=== PATIENT | female | born 1995 ===

== ENCOUNTER 2016-08-05 18:50 | Emergency (ER) | payer BC ==
[2016-08-05 19:24] VITALS: BP 120/61
[2016-08-05] MEDS ORDERED: Lidocaine 1% MPF* 2 ML VIAL INJ ONE (20:51)
--- NOTE | 2016-08-05 21:06 | UC ---
Skin Complaint HPI - HPI Summary HPI Summary: 20 y/o female presents to the urgent care c/o of Rt big toe with pain swelling since 07/30/2016. Patient states her pain is 3/10 and his toe feels hot to touch and with puss. Patient denies fever, SOB, N/V/D. She hasn't apply or taking anything to alleviate her symptoms. - History of Current Complaint Chief Complaint: UCSkin Time Seen by Provider: 08/05/16 20:37 Stated Complaint: RED SWOLLEN TOE Hx Obtained From: Patient Hx Last Menstrual Period: 07/30/16 ?: No Onset/Duration: Gradual Onset, Lasting Days, Still Present Skin Exposure Onset/Duration: Days Ago Timing: Constant Onset Severity: Mild Current Severity: Moderate Pain Intensity: 3 Pain Scale Used: 0-10 Numeric Location: Foot (Right) - RT #1 toe swollen and with pus around the toenail Character: Swelling, Pain Aggravating: Touch, Other - wearing tight shoes. Alleviating: Cold Compresses Associated Signs & Symptoms: Positive: Tenderness. Negative: Fever, Drainage, Red Streaks - Allergy/Home Medications Allergies/Adverse Reactions: Allergies Allergy/AdvReac Type Severity Reaction Status Date / Time No Known Allergies Allergy Verified 08/05/16 20:26 Home Medications: Home Medications Norethindrone Acetate-Ethinyl [Lo Loestrin Fe 1 mg-10 Mcg / 10 Mcg] 1 tab PO 09/14 [History] Review of Systems Constitutional: Negative Skin: Other - Rt toe with swelling and pain Eyes: Negative ENT: Negative Respiratory: Negative Cardiovascular: Negative Gastrointestinal: Negative Genitourinary: Negative Motor: Negative Neurovascular: Negative Musculoskeletal: Negative Neurological: Negative Psychological: Negative All Other Systems Reviewed And Are Negative: Yes PMH/Surg Hx/FS Hx/Imm Hx Previously Healthy: Yes - Surgical History Surgical History: None - Family History Known Family History: Positive: Other - diverticulitis - Social History Occupation: Employed Full-time, Student Alcohol Use: Weekly Substance Use Type: None Smoking Status (MU): Never Smoked Tobacco Physical Exam Triage Information Reviewed: Yes Appearance: Well-Appearing, No Pain Distress, Well-Nourished, Thin Vital Signs: Initial Vital Signs Temp 99 F 08/05/16 19:23 Pulse 81 08/05/16 19:23 Resp 16 08/05/16 19:23 BP 120/61 08/05/16 19:23 Vital Signs Reviewed: Yes Eye Exam: Normal Eyes: Positive: Conjunctiva Clear ENT Exam: Normal ENT: Positive: Normal ENT inspection, Hearing grossly normal, Pharynx normal, TMs normal Neck exam: Normal Neck: Positive: Supple, Nontender, No Lymphadenopathy Respiratory Exam: Normal Respiratory: Positive: Chest non-tender, Lungs clear, Normal breath sounds Cardiovascular Exam: Normal Cardiovascular: Positive: RRR, No Murmur, Pulses Normal Abdominal Exam: Normal Abdomen Description: Positive: Nontender, No Organomegaly, Soft Musculoskeletal Exam: Normal Neurological Exam: Normal Psychological Exam: Normal Skin: Positive: Other - Rt # 1 toe with swelling, tenderness on palpation and purulent nail fold w/o drainage around the base and Rt lateral side of toe nail. Positive pulses, sensation and capillary refill of RT foot. Course/Dx - Course Course Of Treatment: RT #1 toe with paronychia: Hx obtained. PE abnormal findings:Rt # 1 toe with swelling, tenderness on palpation and purulent nail folds w/o drainage around the base and Rt lateral side of toe nail. Positive pulses, sensation and capillary refill. Time out performed and all involved parties agreed to the PT, procedure and laterality. The patient was prepped and draped in usual sterile fashion. Local anesthesia was obtained with 1 % Lidocaine w/o epinephrine.Sterile drape and prep were done. The fluctuant center was incised with #11 blade scalpel. A small amount of purulent material was expressed. Cultuture was taken and sent out to the lab. Bacitracin oinment was placed in the wound and then cover with gauze. After procedure The RT #1 toe was neurovascular intact. The patient tolerated the procedure wel. Rx sent to pharmacy for Kelflex 500mg PO Q6hrs x 7 days and bacitracin ointment. Pt given at the clinic one dose of Keflex 500mg PO and one dose given to take home since pharmacy was closed. Patient given instructions to keep keep the wound dry and apply antibacterial ointment and take antibiotic the full course. Patient understood and agreed. - Differential Diagnoses - Skin Complaint Differential Diagnoses: Abscess, Cellulitis, Tinea, Other - traumatic injury, paronychia or onychomycossis - Diagnoses Provider Diagnoses: paronychia of the RT #1 toe Discharge - Discharge Plan Condition: Stable Disposition: HOME Prescriptions: Bacitracin OINTMENT* 1 applic TOPICAL TID #1 tube Cephalexin CAP* [Keflex CAP*] 500 mg PO QID #26 cap Patient Education Materials: Paronychia (ED) Referrals: Ede GROSS,Desiree Cano [Primary Care Provider] - Additional Instructions: Please take the Keflex 500 mg PO dispensed at the clinic as soon as you get home and then continue with the same antibiotic sent to the pharmacy every 6hrs as directed. Please keep the wound clean and dry and place Bacitracin ointment as directed 3x/day. If symptoms worsen and fever delops or signs of infection please return to the urgent care or f/u with PCP for further treatment.
[2016-08-05] MEDS ORDERED: Cephalexin CAP* 500 MG PO ONE ×2 (21:41→21:42)
== END 2016-08-05 22:10 | disposition home or self-care (01) ==
LOC: UCEAST 18:50
DX: L03.031 Cellulitis of right toe (principal)
CPT/HCPCS: 10060; 87070; 87205; 99212; A9270-GY; G0463